=== PATIENT | female | born 1960 | race Caucasian/White ===

== ENCOUNTER → 2017-05-08 | Day surgery (SDC) | payer OTHER ==
--- NOTE | 2017-05-05 12:39 | Diagnostic Imaging Report ---
PROCEDURE: Frontal and lateral views of the chest. COMPARISON: Patients [facility], , CHEST 2 VIEWS, 06/12/2009, 17:20. INDICATIONS: PRE OP FINDINGS: Lines/tubes: None. Lungs: The lungs are well inflated and clear. There is no evidence of pneumonia or pulmonary edema. Pleura: There is no pleural effusion or pneumothorax. Heart and mediastinum: The heart and the mediastinum are normal. Bones: No acute bony abnormality. IMPRESSION: 1. No acute cardiopulmonary abnormalities. Jarrett Maier M.D. Dictated by: Jarrett Maier M.D. on 05/05/2017 at 12:49 Electronically approved by: Jarrett Maier M.D. on 05/05/2017 at 12:49
[~2017-05-08] MED LIST: ACETAMINOPHEN 1000 MG/100 ML IV ONE; AMBIEN10 MG PO; BUPIVACAINE HCL 0.5% INJ 30 ML VIAL INJ ONE; CLINDAMYCIN PHOS 900MG/ D5W 50 50 ML IV ONE; DEXAMETHASONE SOD PHOS INJ 4 MG/ML VIAL ONE; EPHEDRINE SULFATE INJ 50 MG/10 ML SYR ONE; FENTANYL CITRATE/PF 100MCG/2 ML INJ ONE; HYDROMORPHONE 1MG/1ML INJ ONE; LIDOCAINE HCL 2% LOCAL INJ 5 ML SDV VIAL INJ ONE; METOCLOPRAMIDE HCL 10 MG/2ML VIAL ONE; MIDAZOLAM HCL 2 MG/2 ML VIAL ONE; NEOSTIGMINE 1 MG/ML 10ML VIAL ONE; ONDANSETRON HCL INJ 2 MG/ML VIAL ONE; PANTOPRAZOLE SO40 MG PO; PROPOFOL IV EMULSION 10 MG/ML 20 ML VIAL ONE; SEVOFLURANE INHAL SOLN 250 ML PEN BTL ONE; TYLENOL
--- OUTSIDE RECORDS SUMMARY | 2017-05-08 06:12 | XMS REPORT | Clinical Summary ---
Author Author [facility] Address Unknown Phone Unavailable Care Team Providers Care Stream Control Officer Name Role Phone Liliana Eckert MD PCP Allergies Active Allergy Reactions Severity Noted Date Comments Penicillins 01/03/2016 Current Medications Prescription Sig. Disp. Refills Start End Date Status Date dicyclomine (BENTYL) 20 TK 1 T PO QID 0 12/27/19 Active mg tablet 16 zolpidem (AMBIEN) 10 mg TK 1 T PO QHS PRF SLEEP 5 12/27/19 Active tablet 16 LACTOBACILLUS ACIDOPHILUS Take by mouth daily. Active (PROBIOTIC ORAL) cholecalciferol, vitamin Take 2,000 Units by mouth Active D3, (VITAMIN D3) 2,000 daily. unit capsule capsule calcium carbonate-vitamin Take by mouth daily. Active D3 600mg (1,000mg) -1,000 unit capsule denosumab (PROLIA) 60 Inject 1 mL (60 mg total) 1 mL 1 08/15/19 mg/mL syringe under the skin once for 04 08 16 syringeIndications: dose. Osteoporosis denosumab (PROLIA) 60 Inject 1 mL (60 mg total) 1 mL 1 08/16/19 mg/mL syringe under the skin once for 04 08 16 syringeIndications: dose. Osteoporosis denosumab (PROLIA) 60 Inject 1 mL (60 mg total) 1 mL 1 08/21/19 mg/mL syringe under the skin once for 04 08 16 syringeIndications: dose. Osteoporosis denosumab (PROLIA) 60 Inject 1 mL (60 mg total) 1 mL 1 08/28/1910/09 mg/mL syringe under the skin once for 04 08 16 syringeIndications: dose. Osteoporosis denosumab (PROLIA) 60 Inject 1 mL (60 mg total) 1 mL 1 02/26/2010/09 Discontin mg/mL syringe under the skin once for 1 17 17 ued syringeIndications: dose. Osteoporosis, unspecified osteoporosis type, unspecified pathological fracture presence denosumab (PROLIA) 60 Inject 1 mL (60 mg total) 1 mL 1 02/27/2010/09 mg/mL syringe under the skin once for 1 17 17 syringeIndications: dose. Osteoporosis, unspecified osteoporosis type, unspecified pathological fracture presence Hospital, Clinic, or Ordered Dose Route Frequency Start End Date Status Other Facility Date Administered Medication denosumab (PROLIA) 60 mg subQ Q6 Months 02/20/20 Active syringe 60 mgIndications: 16 Osteoporosis denosumab (PROLIA) 60 mg subQ Q6 Months 09/04/19 Active syringe 60 mgIndications: 17 Osteoporosis denosumab (PROLIA) 60 mg subQ Q6 Months 03/04/20 Active syringe 60 mgIndications: 17 Osteoporosis, unspecified osteoporosis type, unspecified pathological fracture presence Active Problems Problem Noted Date Osteoporosis 01/03/2016 Vitamin D deficiency 01/03/2016 Tobacco dependence 01/03/2016 Encounters Date Type Specialty Care Team Description 03/04/2017 Clinical Endocrinology Dyan Ortiz MA Osteoporosis, unspecified Support osteoporosis type, unspecified pathological fracture presence (Primary Dx) 03/04/2017 Orders Only Endocrinology Dyan Ortiz MA 03/04/2017 Orders Only Endocrinology Dyan Ortiz MA 02/26/2017 Orders Only Endocrinology Dyan Ortiz MA Osteoporosis , unspecified osteoporosis type, unspecified pathological fracture presence 02/25/2017 Orders Only Endocrinology Dyan Ortiz MA Osteoporosis , unspecified osteoporosis type, unspecified pathological fracture presence (Primary Dx) 09/03/2016 Clinical Endocrinology Dyan Ortiz MA Osteoporosis ( Primary Dx) Support 08/27/2016 Orders Only Endocrinology Dyan Ortiz MA Osteoporosis (Primary Dx) 08/20/2016 Orders Only Endocrinology Dyan Ortiz MA Osteoporosis (Primary Dx) 08/15/2016 Orders Only Endocrinology Dyan Ortiz MA Osteoporosis (Primary Dx) 08/14/2016 Orders Only Endocrinology Dyan Ortiz MA Osteoporosis (Primary Dx) 07/17/2016 Nallely Amos MD Routine general medical Orders examination at a health care facility (Primary Dx) 07/07/2016 Office Visit Endocrinology Nica Gallardo MD Osteoporosis (Primary Dx); Vitamin D deficiency; Tobacco dependence after 05/07/2016 Family History Medical History Relation Name Comments Cancer Mother breast Relation Name Status Comments Mother Social History Tobacco Use Types Packs/Day Years Used Date Current Every Day Smoker Cigarettes 0.5 20 Alcohol Use Drinks/Week oz/Week Comments Yes socially Sex Assigned at Date Recorded Not on file Last Filed Vital Signs Vital Sign Reading Time Taken Blood Pressure 106/63 07/07/2016 1:15 PM CDT Pulse 64 07/07/2016 1:15 PM CDT Temperature 36.6 C (97.9 F) 07/07/2016 1:15 PM CDT Respiratory Rate - - Oxygen Saturation 100% 07/07/2016 1:15 PM CDT Inhaled Oxygen - - Concentration Weight 57.2 kg (126 lb) 07/07/2016 1:15 PM CDT Height 160 cm (5' 3") 07/07/2016 1:15 PM CDT Body Mass Index 22.32 07/07/2016 1:15 PM CDT Plan of Treatment Date Type Specialty Care Team Description 09/28/2017 Ancillary Nica Gallardo MD Procedure [address] [facility] [address] [place] [address] [id number] 09/28/2017 Office Visit Endocrinology Nica Gallardo MD [address] [place] [address] Health Maintenance Due Date Last Done Comments PAP SMEAR 06/01/1983 COLONOSCOPY 2012 MAMMOGRAM 2012 INFLUENZA VACCINE 10/21/2016 01/02/2016, 12/11/2014, 12/21/2013, Additional history exists Results * Bone Density (07/07/2016 1:04 PM) Specimen Performing Laboratory [facility] [address] [place] [address] Narrative [facility] [address] [facility] [place] [address] Bone Density Report Name: EYAL PARIS Sex: Female Age: 56 Ethnicity: White Height: 63.0 in Referring Provider: NICA GALLARDO Date of : 1960 Weight: 126.0lb Indication: Postmenopausal; screening for osteoporosis Accession number: [id number] Bone Density: Exam date 07/07/2016 Region BMD (g/cm2) T-score Z-score Classification AP Spine(L1-L4) 0.814 -2.1 -1.1 Osteopenia Femoral Neck(Left) 0.598 -2.3 -1.3 Osteopenia Total Hip(Left) 0.693 -2.0 -1.4 Osteopenia Femoral Neck(Right) 0.611 -2.1 -1.2 Osteopenia Total Hip(Right) 0.681 -2.1 -1.5 Osteopenia Total Hip Mean 0.687 -2.1 -1.5 Osteopenia World Health Organization criteria for BMD impression classify patients as Normal (T-score at or above 1.0), Osteopenia (T-score between 1.0 and 2.5), or Osteoporosis (T-score at or below 2.5). 10-year Fracture Risk: Major Osteoporotic Fracture 8.0% Hip Fracture 2.0% Reported Risk Factors: [place] (), T-score(WHO)=-2.2, BMI=22.3, smoking FRAX Version 3.08. Fracture probability calculated for an untreated patient. Fracture probability may be lower if the patient has received treatment. Impression: The patient has low bone mass, based on the Left Femoral Neck T-score. The patient has an estimated ten-year risk of hip fracture of 2% and an estimated ten-year risk of major fracture of 8%, based on the WHO FRAX algorithm for a patient not on therapy (NOF thresholds are 20% for a major fracture and 3% for a hip fracture). The patient has risk factors, including: smoking. Discussion: BONE DENSITY IS LOW AT ONE OR MORE SKELETAL SITES. This patient's lowest T-score is low at one or more skeletal sites.It meets the World Health Organization's (WHO) criteria for low bone mass (T-score between -1.0 and -2.5). The patient's 10-year risk of fracture as calculated by FRAX is less than the threshold where pharmacological therapy is recommended by the National Osteoporosis Foundation (NOF).However, all treatment decisions require clinical judgment and consideration of individual patient factors, including patient preferences, comorbidities, previous drug use, risk factors not captured in the FRAX model (e.g., frailty, falls, vitamin D deficiency, increased bone turnover, interval significant decline in bone density) and possible under or overestimation of fracture risk by FRAX. The patient should follow a healthful lifestyle (good nutrition with adequate calcium and vitamin D, and appropriate weight-bearing exercise). Follow-Up: Consider repeating this study in 2 to 3 years to reassess this patient's status, or sooner if there is some new clinical indication. Reported by: Milan Hawley MD, SUKHDEV, MACE, FACP, CCD on 07/08/2016 9:26:00 AM. after 05/07/2016 Insurance Payer Benefit Subscriber ID Type Phone Address Plan / Group [facility] xxxxxxxxx PPO [employer] H[employer]/[place] [address]
--- OUTSIDE RECORDS SUMMARY | 2017-05-08 06:12 | XMS REPORT ---
Author Author [facility] Address Unknown Phone Unavailable Care Team Providers Care Mold Washer Name Role Phone XENA RODRIGUEZ Unavailable Unavailable Problems This patient has no known problems. Allergies, Adverse Reactions, Alerts This patient has no known allergies or adverse reactions. Medications This patient has no known medications. Results Test Description Test Time Test Comments Text Results Atomic Results Result Comments CHEST [address] [address] Patient Name: EYAL PARIS MR #: [id number] : 1960 Age/Sex: 56/F Req #: [id number] Adm Physician: Ordered by: XENA RODRIGUEZ DPM Report #: [id number] Location: OR Room/Bed: Procedure: [id number] DX/CHEST 2 VIEWS Exam Date: 05/05/17 Exam Time: 1100 REPORT STATUS: Signed PROCEDURE: Frontal and lateral views of the chest. COMPARISON: [facility], CHEST 2 VIEWS, 2009, 17:20. INDICATIONS: PRE OP FINDINGS: Lines/tubes: None. Lungs: The lungs are well inflated and clear. There is no evidence of pneumonia or pulmonary edema. Pleura: There is no pleural effusion or pneumothorax. Heart and mediastinum: The heart and the mediastinum are normal. Bones: No acute bony abnormality. IMPRESSION: 1. No acute cardiopulmonary abnormalities. Gurpreet Chapman M.D. Dictated by: Gurpreet Chapman M.D. on 05/05/2017 at 12:49 Electronically approved by: Gurpreet Chapman M.D. on 05/05/2017 at 12:49 Dictated By: GURPREET CHAPMAN MD [id number] Transcribed By: MARGARET on 05/05/17 1249 COPY TO: XENA RODRIGUEZ DPM
--- NOTE | 2017-06-01 18:30 | Operative Report ---
DATE OF PROCEDURE: May 08, 2017 PREOPERATIVE DIAGNOSES: 1. 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 2. 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 3. 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 POSTOPERATIVE DIAGNOSES: 1. Modified Elkin bunionectomy of the right foot. 2. A Suellen osteotomy 2nd metatarsal of the right foot. 3. Arthrodesis 2nd digit, right foot. ANESTHESIA: General endotracheal. HEMOSTASIS: Right thigh tourniquet 350 mmHg to create hemostasis. PROCEDURE IN DETAIL: The patient was taken to the operating room in a mildly state and placed upon the operating table in the supine position. Following induction of general anesthesia, the right lower extremity was elevated to 60 degrees to exsanguinate before inflating the pneumatic thigh tourniquet to 350 mmHg for hemostasis. Right lower extremity was placed upon the operating table prior to performing the following procedure. Procedure #1: Modified Elkin bunionectomy of the right foot. An approximate 6 cm dorsal linear incision was made along the dorsomedial aspect of the 1st metatarsophalangeal joint of the right foot. Incision was deepened via sharp and blunt dissection down to the level of the dorsal capsular structure. Care was taken to identify and retract all vital structures encountered. Head of the 1st metatarsal at the level of the surgical site remodeled utilizing oscillating saw. Conjoined tendon of the adductor hallucis muscle was identified and tenotomized. Ixxzvxj-hyk-soqvcvs V osteotomy was placed with apex distally and base proximally to allow for relative shift lateral-worthy of the head on the more proximal segment which was then impacted and stabilized with 2 cortical bone screws. Medial eminence was further remodeled and the area was irrigated with copious amounts of sterile saline solution. The capsular tendon balancing procedures were performed. Deep closure and capsular repair with 3-0 Vicryl. Subcutaneous closure 4-0 Vicryl and skin closure 4-0 nylon. Attention was then directed to the 2nd metatarsophalangeal joint for treatment of the plantar flex metatarsal. A linear longitudinal incision was made overlying the 2nd metatarsal head and the head of the 2nd metatarsal wound at the surgical site and remodeled utilizing oscillating saw. Wlzbzsl-mvm-pfywyqo Suellen osteotomy was placed from distal to proximal which allowed for proximal reduction of the length and elevation of the 2nd metatarsal. This was then stabilized with 2 snap-off screws. The area was then remodeled and irrigated with copious amounts of sterile saline solution. Deep closure with 3-0 Vicryl. Subcutaneous closure with 4-0 Vicryl and skin closure with 4-0 nylon. Attention was then directed for procedure number 3 which is the arthrodesis 2nd digit, right foot. Linear longitudinal incision was made overlying the 2nd digit and a cup and cone reamer was used to form the head of the proximal phalanx and the base of the intermediate phalanx into a fusion site for the implantable hardware from [employer]. The tray and hammertoe implant was then placed and a K-wire exited the digit and into the metatarsal head. Area was irrigated and closed with 3-0 Vicryl in layers and 4-0 Vicryl and 4-0 nylon. Human tissue allograft was used to facilitate healing. The areas of surgery were then blocked with 0.5 Marcaine and Decadron [place], releasing the pneumatic thigh tourniquet showing a normal hyperemic flush to all digits of the right foot. Pins and K-wires were cut to their appropriate length. The patient left the operating room with vital signs stable in apparent satisfactory condition, having tolerated both the anesthetic and procedure very well. Job#: [id number] ZACH
== END | disposition home or self-care (01) ==
LOC: OR 06:10
PROVIDERS: ATTEND Podiatrist Foot Surgery
DX: M20.11 Hallux valgus (acquired), right foot (principal); M19.071 Primary osteoarthritis, right ankle and foot; M20.41 Other hammer toe(s) (acquired), right foot; K21.9 Gastro-esophageal reflux disease without esophagitis; F17.210 Nicotine dependence, cigarettes, uncomplicated; Z01.810 Encounter for preprocedural cardiovascular examination; Z01.818 Encounter for other preprocedural examination
CPT/HCPCS: 28285; 28296; 28308; 71046; 93005; C1713; C1762; J1100; J1170; J2001; J2250; J2405; J2710; J2765; 76001

== ENCOUNTER → 2017-10-09 | Day surgery (SDC) | payer OTHER ==
--- NOTE | 2017-10-07 13:55 | Diagnostic Imaging Report ---
PROCEDURE: X-RAY CHEST, TWO VIEWS COMPARISON: None. INDICATIONS: PRE OP FOR FOOT SURGERY FINDINGS: LUNGS: No consolidations or edema. PLEURA: No effusions or pneumothorax. HEART \T\ MEDIASTINUM: The heart is within normal size-limits. BONES \T\ SOFT TISSUES: No acute findings. CONCLUSION: No acute thoracic abnormality. Dictated by: Joe Kwong M.D. on 10/07/2017 at 14:00 Electronically approved by: Joe Kwong M.D. on 10/07/2017 at 14:00
[~2017-10-09] MED LIST changes: +ACETAMINOPHEN 1000 MG/100 ML 100 ML IV ONE; -ACETAMINOPHEN 1000 MG/100 ML IV ONE; +BUPIVACAINE HCL 0.5% 10ML MPF VIAL INJ ONE; -HYDROMORPHONE 1MG/1ML INJ ONE; +KETOROLAC TROMETHAMINE 30 MG/ML VIAL ONE; +MEPERIDINE HCL INJ 50 MG/ML INJ ONE; -METOCLOPRAMIDE HCL 10 MG/2ML VIAL ONE; +NEOMYCIN/POLYMYX/BACITR OINT 0.9 GM PKT ONE; -NEOSTIGMINE 1 MG/ML 10ML VIAL ONE; +PROMETHAZINE HCL (IM) 25 MG/ML VIAL ONE; +ZYRTEC-D TABLE1 EACH PO
--- NOTE | 2017-10-15 21:29 | Operative Report ---
DATE OF PROCEDURE: October 09, 2017 PREOPERATIVE DIAGNOSES: 1. Extensor hallucis longus tendon rupture. 2. Second metatarsophalangeal joint contracture both on the right foot. 3. Removal of screw from the second metatarsal on the right foot. 4. Human tissue allograft. PROCEDURES: 1. Repair of the extensor hallucis longus tendon, right foot. 2. Surgical release of contracture, second metatarsophalangeal joint, right foot. 3. Removal of the screw from the second metatarsal, right foot. 4. Reinforcement of tendon repair with human tissue allograft. PROCEDURE IN DETAIL: The patient was taken to the operating room in a mildly sedated state and placed upon the operating room table in supine position. Following induction of general anesthetic, the right lower extremity was elevated to 60 degrees to exsanguinate before inflating the pneumatic thigh tourniquet to 350 mmHg to good hemostasis. Right lower extremity was placed upon the operating room table prior to performing the following procedure: Procedure #1. Repair of the extensor hallucis longus tendon. MRI had been positive for a rupture. Incision was made overlying the dorsal aspect of the first metatarsophalangeal joint where the extensor hallucis longus tendon was noted to be bound down to the underlying tissue of the first metatarsophalangeal joint capsule. In dissecting it free, it was noted that the tendon was indeed intact, but it had been elongated to a point of no longer creating a dynamic extension when the muscle belly was fired. The repair was in essence adhered to the dorsal capsular structure. After freeing the tendon and inspection of the repair, it was noted that a shorter tendon would be more viable. A ipjmnrb-qou-banffdm cut was placed with a T-uaklmu-fmhx lengthening to tighten the tendon along the first metatarsophalangeal joint. The capsule itself was noted to be intact, although some of the dorsal adhesions had to be released. There was adequate material surrounding to cover it. The capsule was then repaired and a human tissue allograft was used to further augment the repair of the extensor hallucis longus tendon, which had been shortened and repaired with 4-0 Prolene. A wrap of the tendon with human tissue allograft was performed. The area had previously been irrigated with copious amounts of sterile saline solution. Deep closure was 3-0 Vicryl and skin closure 4-0 nylon. Attention was then directed to the second metatarsophalangeal joint where linear longitudinal incision was made overlying the contracture. This allowed for dissection down to the joint level and release of all extensor tendon contractures. The head was delivered in the surgical site and remodeled. It was noted at the time that the prominent screw on the top second met head may be bothering her, therefore that was irrigated and taken out. The screw itself was sent to pathology for further evaluation. Deep wound culture and sensitivity was taken. The areas of the surgery were then blocked with 0.5 Marcaine and Decadron LA. The release of the pneumatic thigh tourniquet showed a normal hyperemic flush to all digits of the right foot. Deep closure was 3-0 Vicryl and skin closure 4-0 nylon. Job#: [id number]
== END | disposition home or self-care (01) ==
LOC: OR 06:30
PROVIDERS: ATTEND Podiatrist Foot Surgery
DX: M66.871 Spontaneous rupture of other tendons, right ankle and foot (principal); M19.071 Primary osteoarthritis, right ankle and foot; M24.574 Contracture, right foot; F17.200 Nicotine dependence, unspecified, uncomplicated; Z88.0 Allergy status to penicillin; Z45.89 Encounter for adjustment and management of other implanted devices; Z01.810 Encounter for preprocedural cardiovascular examination; Z01.818 Encounter for other preprocedural examination
CPT/HCPCS: 20680; 28208; 28234; 71046; 93005; J1100; J1885; J2001; J2175; J2250; J2405; J2550; 76001

== ENCOUNTER 2019-12-24 19:16 | Emergency (ER) | payer BC, OTHER ==
[~2019-12-24] VITALS: Ht 160 cm; Wt 59.0 kg
[~2019-12-24 19:16] MED LIST changes: -ACETAMINOPHEN 1000 MG/100 ML 100 ML IV ONE; -BUPIVACAINE HCL 0.5% 10ML MPF VIAL INJ ONE; -BUPIVACAINE HCL 0.5% INJ 30 ML VIAL INJ ONE; -CLINDAMYCIN PHOS 900MG/ D5W 50 50 ML IV ONE; -DEXAMETHASONE SOD PHOS INJ 4 MG/ML VIAL ONE; -EPHEDRINE SULFATE INJ 50 MG/10 ML SYR ONE; -FENTANYL CITRATE/PF 100MCG/2 ML INJ ONE; -KETOROLAC TROMETHAMINE 30 MG/ML VIAL ONE; -LIDOCAINE HCL 2% LOCAL INJ 5 ML SDV VIAL INJ ONE; -MEPERIDINE HCL INJ 50 MG/ML INJ ONE; -MIDAZOLAM HCL 2 MG/2 ML VIAL ONE; -NEOMYCIN/POLYMYX/BACITR OINT 0.9 GM PKT ONE; -ONDANSETRON HCL INJ 2 MG/ML VIAL ONE; -PROMETHAZINE HCL (IM) 25 MG/ML VIAL ONE; -PROPOFOL IV EMULSION 10 MG/ML 20 ML VIAL ONE; -SEVOFLURANE INHAL SOLN 250 ML PEN BTL ONE
[2019-12-24] MEDS ORDERED: SODIUM CHLORIDE 0.9% 1000ML 1,000 ML IV STA (19:41)
[2019-12-24] MEDS ORDERED: CLINDAMYCIN 600MG / 50ML 50 ML IV ONE (19:45)
[2019-12-24] MEDS ORDERED: SODIUM CHLORIDE 0.9% 1000ML 1,000 ML ONE (19:50)
[2019-12-24] MEDS ORDERED: IBUPROFEN IB200 MG PO (19:59)
[2019-12-24] MEDS ORDERED: DOXYCYCLINE HY100 MG PO (19:59)
[2019-12-24] MEDS ORDERED: ULTRAM 50MG50 MG PO (19:59)
== END 2019-12-24 21:00 | disposition home or self-care (01) ==
LOC: FSED 19:35
DX: R50.9 Fever, unspecified (principal); L03.113 Cellulitis of right upper limb
CPT/HCPCS: 80053; 81003; 85025; 99283; J7030